=== PATIENT | female | born 1965 | race American Indian/Alaskan Native ===

== ENCOUNTER 2023-07-31 09:31 | Day surgery (SDC) | payer MEDICARE, MEDICAID ==
[2023-07-26 15:28] LABS: BASOPHILS # (AUTO) 0.1 X10'3 (0-0.2); BASOPHILS % (AUTO) 0.6 % (0-1); EOSINOPHILS # (AUTO) 0.1 X10'3 (0-0.9); EOSINOPHILS % (AUTO) 1.1 % (0-6); HEMATOCRIT 34.8 % (35.0-45.0); HEMOGLOBIN 11.8 g/dl (12.0-16.0); LYMPHOCYTES # (AUTO) 3.3 X10'3 (1.1-4.8); LYMPHOCYTES % (AUTO) 30.4 % (21-51); MEAN CORPUSCULAR HEMOGLOBIN 28.7 PG (27.0-31.0); MEAN CORPUSCULAR HGB CONC 33.9 g/dL (33.0-36.5); MEAN CORPUSCULAR VOLUME 84.7 FL (78-98); MONOCYTES # (AUTO) 0.5 X10'3 (0-0.9); MONOCYTES % (AUTO) 4.8 % (2-12); NEUTROPHILS # (AUTO) 6.8 X10'3 (1.8-7.7); NEUTROPHILS % (AUTO) 63.1 % (42-75); PLATELET COUNT 269 X10'3 (140-440); RED CELL DISTRIBUTION WIDTH 14.2 % (11.5-14.5); WHITE BLOOD COUNT 10.7 X10'3 (4.5-11.0)
[2023-07-26 15:34] LABS: ALANINE AMINOTRANSFERASE 40 U/L (12-78); ALBUMIN 3.4 G/DL (3.4-5.0); ALBUMIN/GLOBULIN RATIO 0.8 (1.1-1.5); ALKALINE PHOSPHATASE 161 IU/L (46-116); ANION GAP 5 (8-16); ASPARTATE AMINO TRANSFERASE 18 U/L (10-37); BILIRUBIN,TOTAL 0.4 MG/DL (0.1-1.0); BLOOD UREA NITROGEN 15 MG/DL (7-18); BUN/CREATININE RATIO 16.7 (10.0-20.0); CALCIUM 9.1 MG/DL (8.5-10.1); CHLORIDE 102 MMOL/L (99-107); GLUCOSE 244 MG/DL (70-104); POTASSIUM 3.4 MMOL/L (3.5-5.1); SODIUM 135 MMOL/L (135-145); TOTAL CARBON DIOXIDE 28.1 MMOL/L (24-32); TOTAL PROTEIN 7.6 G/DL (6.4-8.2); eGFR 65 ML/MIN
[2023-07-31] VITALS (14 sets, daily range): BP systolic 95–138; BP diastolic 51–82; PULSE 55–71; RESP 11–16; TEMP 98.1–98.7; O2SAT 95–99
[~2023-07-31] VITALS: Ht 165.1 cm; Wt 86.2 kg
[~2023-07-31 09:31] MED LIST: AMA1T PO; ATOR40TA PO; ATOR80TA PO; BUPIVAcaine/PF 2.5mg/ml (0.25%) 10ml vial ONE; BUPR1PAT TOP; CELE-193 PO; CLOP75TA15 PO; CYAN10007 IM; ERGO500041 PO; GEMF600T PO; HYDR-4353 PO; OLME-40 PO; OMEP40CA21 PO; ONDA-104 PO; cefazolin 2gm/D5W 100mL 100 ML IV ONE; famotidine 20mg tablet PO ONE; ringers solution, lacted 1,000 ML IV SCH
[2023-07-31] MEDS ORDERED: DULA3PEN (10:55)
[2023-07-31] MEDS ORDERED: BUPIVAcaine/PF 2.5mg/ml (0.25%) 10ml vial ONE (11:27)
[2023-07-31] MEDS ORDERED: MIDAZolam 1 MG/ML 5ML VIAL ONE ×2 (11:54→12:07)
[2023-07-31] MEDS ORDERED: LIDOcaine 0.5% (5mg/ml) 50ml vial ONE (12:07)
[2023-07-31] MEDS ORDERED: ROPIVAcaine 0.5% (5mg/ml) 30ml vial ONE (12:17)
--- NOTE | 2023-07-31 12:31 | NUR ---
Received from OR via [facility] TO [facility], accompanied by Anesthesiologist DR DONOVAN and report given by Anesthesiolgist. PT PRESENT WITH PIV 20G RIGHT AC, SPO2 95 ROOM AIR, BILATERAL HAND DRESSING CDI, VSS. Addendum: 07/31/23 at 1309 by Nyla Sarabia RN, RN Amended: Links added.
--- NOTE | 2023-07-31 14:11 | NUR ---
I HAVE REVIEWED D/C INSTRUCTIONS WITH PATIENT and they have verbalized understanding patient d/c home with all belongings and family gave transport home. Addendum: 07/31/23 at 1438 by Nyla Sarabia RN, RN Amended: Links added.
== END 2023-07-31 14:11 | disposition home or self-care (01) ==
LOC: PAS 09:31
PROVIDERS: ATTEND Orthopaedic Surgery Hand Surgery
DX: M65.312 Trigger thumb, left thumb (principal); M65.342 Trigger finger, left ring finger; M65.341 Trigger finger, right ring finger; I10 Essential (primary) hypertension; E11.9 Type 2 diabetes mellitus without complications; I25.119 Atherosclerotic heart disease of native coronary artery with unspecified angina pectoris; K21.9 Gastro-esophageal reflux disease without esophagitis; F41.9 Anxiety disorder, unspecified; I25.2 Old myocardial infarction; M19.90 Unspecified osteoarthritis, unspecified site; Z79.4 Long term (current) use of insulin; Z79.84 Long term (current) use of oral hypoglycemic drugs; Z79.899 Other long term (current) drug therapy; Z90.49 Acquired absence of other specified parts of digestive tract; Z90.710 Acquired absence of both cervix and uterus; Z98.891 History of uterine scar from previous surgery; Z98.890 Other specified postprocedural states; Z88.5 Allergy status to narcotic agent; Z88.8 Allergy status to other drugs, medicaments and biological substances
CPT/HCPCS: 26055; 36415; 80053; 82948; 85025; 93005; J0690; J2250; J2795; J3490; J7030; J7120; Z7506; Z7512; A4215